=== PATIENT | female | born 1995 | race Two or more races ===

== ENCOUNTER 2023-01-24 05:16 | Outpatient (CLI) | payer OTHER ==
[2023-01-24] MEDS ORDERED: LEVOTHYROXINE25 MCG PO (05:49)
[2023-01-24] MEDS ORDERED: PRENATAL TABLE1 EAC1 PO (05:49)
== END 2023-01-24 11:56 | disposition home or self-care (01) ==
LOC: OBS/DEL 05:16
PROVIDERS: ATTEND Obstetrics & Gynecology
DX: O23.33 Infections of other parts of urinary tract in pregnancy, third trimester (principal); N39.0 Urinary tract infection, site not specified; O47.1 False labor at or after 37 completed weeks of gestation; Z3A.38 38 weeks gestation of pregnancy

== ENCOUNTER 2023-02-02 12:05 | Inpatient (IN) | payer OTHER ==
[~2023-02-02] VITALS: Ht 154.9 cm; Wt 68.0 kg
[~2023-02-02 12:05] MED LIST: LEVOTHYROXINE25 MCG PO; PRENATAL TABLE1 EAC1 PO
== END 2023-02-05 13:46 | disposition home or self-care (01) | DRG 788 ==
LOC: OBS/DEL 12:05 → LDR 12:47 → OBS/DEL 12:47 → OB/GYN 12:47 → O/R 19:48 → OB/GYN 21:37
PROVIDERS: Obstetrics & Gynecology; ADMIT Obstetrics & Gynecology; ATTEND Obstetrics & Gynecology
PROC: 4A1HXCZ Monitoring of Products of Conception, Cardiac Rate, External Approach (ICD-10-PCS; 2023-02-02)
PROC: 10D00Z1 Extraction of Products of Conception, Low, Open Approach (ICD-10-PCS; principal; 2023-02-02 19:00)
DX: O62.1 Secondary uterine inertia (principal); O33.5XX0 Maternal care for disproportion due to unusually large fetus, not applicable or unspecified; O36.63X0 Maternal care for excessive fetal growth, third trimester, not applicable or unspecified; Z3A.39 39 weeks gestation of pregnancy; Z37.0 Single live birth; Z20.822 Contact with and (suspected) exposure to COVID-19

== ENCOUNTER → 2023-05-07 | Emergency (ER) | payer OTHER ==
[~2023-05-07] VITALS: Ht 154.9 cm; Wt 54.4 kg
[~2023-05-07] MED LIST changes: +ACETAMINOPHEN500 M1 PO; +CIPRO500 MG PO; +DICY20TA PO; +INTESTINEX680 M1 PO; +PEPCID AC20 MG PO
[2023-05-08 01:09] LABS: HEMATOCRIT 35.4 % (36.0-45.00); HEMOGLOBIN 11.6 g/dL (12.0-15.00); MEAN CELL VOLUME 80.2 fL (80.00-100.00); MEAN CORPUSCULAR HEMOGLOBIN 26.3 pg (27.00-32.0); MEAN CORPUSCULAR HGB CONC 32.8 g/dl (32.0-36.0); PLATELET COUNT 268 K/uL (150-450); RED BLOOD COUNT 4.42 M/uL (4.00-6.00); RED CELL DISTRIBUTION WIDTH 15.2 % (11.5-14.5)
[2023-05-08 01:44] LABS: ALBUMIN 3.7 gm/dL (3.4-5.0); BILIRUBIN TOTAL 0.64 mg/dL (0.3-1.2); CALCIUM 8.9 mg/dL (8.5-10.1); CREATININE SERUM 0.74 mg/dL (0.55-1.02); GFR 95.62; GLOBULINA 3.6 G/DL (2.4-3.5); POTASSIUM 3.29 mEq/L (3.5-5.1); TOTAL PROTEIN 7.3 gm/dL (6.4-8.2)
== END | disposition home or self-care (01) ==
LOC: ER 22:01
PROVIDERS: General Practice
DX: A05.9 Bacterial foodborne intoxication, unspecified (principal); B34.9 Viral infection, unspecified; K52.9 Noninfective gastroenteritis and colitis, unspecified

== ENCOUNTER 2025-06-12 19:45 | Emergency (ER) | payer OTHER ==
[~2025-06-12] VITALS: Ht 154.9 cm; Wt 56.7 kg
[2025-06-12] MEDS ORDERED: DEXAMETHASONE SODIUM PHOSPHATE 4 MG/ML VIAL IM ONE (20:00)
[2025-06-12] MEDS ORDERED: KETOROLAC TROMETHAMINE 60 MG VIAL IM ONE (20:00)
[2025-06-12] MEDS ORDERED: NAPROXEN500 MG PO (21:47)
[2025-06-12] MEDS ORDERED: CYCLOBENZAPRINE10 MG PO (21:47)
== END 2025-06-12 22:29 | disposition home or self-care (01) ==
LOC: ER 19:46
DX: S39.012A Strain of muscle, fascia and tendon of lower back, initial encounter (principal); S16.1XXA Strain of muscle, fascia and tendon at neck level, initial encounter; W18.39XA Other fall on same level, initial encounter; Y93.89 Activity, other specified; Y92.018 Other place in single-family (private) house as the place of occurrence of the external cause; Y99.9 Unspecified external cause status; M51.369 Other intervertebral disc degeneration, lumbar region without mention of lumbar back pain or lower extremity pain